=== PATIENT | female | born 1950 | race Caucasian/White ===

== ENCOUNTER 2019-10-06 18:44 | Inpatient (IN) ==
[2019-10-07] MEDS ORDERED: *HR* Metoprolol 5 MG/5 ML VIAL IVP ONE ×2 (03:02→03:13)
[2019-10-07] MEDS ORDERED: Naloxone 0.4 MG/ML INJ IVP PRN (04:02)
[2019-10-07] MEDS ORDERED: Albuterol 2.5 MG/3 ML NEBULIZER IH PRN (04:46)
[2019-10-07] MEDS: Ipratropium/Albuterol Neb 3 ML IH SCH ×4 (04:58→23:54)
[2019-10-07] MEDS ORDERED: Calcium Gluconate 1gm/50mL 1 GM/50 ML BAG IVPB ONE (05:16)
[2019-10-07] MEDS ORDERED: Nicotine 21 MG PATCH.TD24 TD PRN (05:27)
[2019-10-07] MEDS ORDERED: *HR* LORazepam 2 MG/ML VIAL IVP PRN ×3 (05:29)
[2019-10-07 06:09] LABS: Hemoglobin 16.6 g/dL (11.5-15.4); Mean Corpuscular HGB Conc 34.6 g/dL (31.6-35.5); Mean Corpuscular Hemoglobin 30.7 pg (28.0-33.3); Mean Corpuscular Volume 88.9 fL (83.0-100.0); Mean Platelet Volume 9.6 fL (9.4-12.4); Platelet Count 193 K/mcL (140-400); Red Cell Distribution Width 14.8 % (11.5-14.5); White Blood Count 12.1 K/mcL (4.3-11.1)
[2019-10-07] MEDS: Azithromycin 500 MG in D5% in Water 250 ML IVPB SCH (06:24)
[2019-10-07 06:25] LABS: ABG Base Excess 1 mEq/L (-2 to 3); ABG HCO3 28 mEq/L (21-27); ABG Oxygen Saturation 88 % (95-98); ABG PCO2 52 mmHg (35-45); ABG PH 7.33 pH Units (7.32-7.45); ABG PO2 58 mmHg (85-104); ABG TCO2 29 mEq/L (20-26)
[2019-10-07 06:31] LABS: Alanine Aminotransferase 11 Units/L (7-52); Albumin 3.9 g/dL (3.5-5.7); Albumin/Globulin Ratio 1.5 (1.1-2.2); Alkaline Phosphatase 70 Units/L (34-104); Aspartate Amino Transferase 21 Units/L (13-39); BUN/Creatinine Ratio 39 (6-26); Bilirubin,Total 0.8 mg/dL (0.3-1.0); Blood Urea Nitrogen 28 mg/dL (8-23); Calcium 8.7 mg/dL (8.6-10.3); Carbon Dioxide 24 mEq/L (23-29); Chloride 97 mEq/L (98-107); Globulin 2.6 g/dL (2.4-3.5); Glucose 144 mg/dL (70-105); Magnesium 1.8 mg/dL (1.6-2.6); Osmolality,Calculated 280 (280-300); Phosphorous 3.7 mg/dL (2.7-4.5); Potassium 4.7 mEq/L (3.5-5.1); Sodium 131 mEq/L (136-145); Total Protein 6.5 g/dL (6.4-8.9); Troponin I 0.03 ng/mL (< 0.04); eGFR For African Americans > 60 (> 60); eGFR For Non-African Americans > 60 (> 60)
[2019-10-07] MEDS: predniSONE 20 MG TABLET PO SCH (08:30)
[2019-10-07] MEDS: *HR* Promethazine 25 MG/ML VIAL IVP PRN ×2 (10:04→20:58)
[2019-10-07] MEDS ORDERED: Perflutren Lipid Microsphere 1.3 ML in 0.9 % Sodium Chloride 8.7 ML IVP ONE (14:52)
[2019-10-07] MEDS: Thiamine (B-1) 100 MG, Folic Acid 1 MG, MVI, adult with vitamin K 10 ML in 0.9 % Sodi... IVPB SCH (18:13)
[2019-10-08] MEDS: Ipratropium/Albuterol Neb 3 ML IH SCH ×4 (04:29→23:22)
[2019-10-08 05:41] LABS: Basophils % 0.1 %; Hematocrit 48.4 % (35.3-44.9); Hemoglobin 16.9 g/dL (11.5-15.4); Immature Granulocytes % 0.6 % (0-4); Lymphocytes # 0.8 K/mcL (0.6-4.6); Lymphocytes % 5.9 %; Mean Corpuscular HGB Conc 34.9 g/dL (31.6-35.5); Mean Corpuscular Hemoglobin 30.8 pg (28.0-33.3); Mean Corpuscular Volume 88.2 fL (83.0-100.0); Monocytes # 1.8 K/mcL (0.0-1.3); Neutrophils # 11.1 K/mcL (1.6-8.9); Platelet Count 166 K/mcL (140-400); Red Blood Count 5.49 M/mcL (3.82-4.97); Red Cell Distribution Width 14.8 % (11.5-14.5); Segmented Neutrophils % 80.4 %; White Blood Count 13.8 K/mcL (4.3-11.1)
[2019-10-08 06:01] LABS: BUN/Creatinine Ratio 44 (6-26); Blood Urea Nitrogen 24 mg/dL (8-23); Calcium 8.6 mg/dL (8.6-10.3); Carbon Dioxide 25 mEq/L (23-29); Chloride 98 mEq/L (98-107); Glucose 123 mg/dL (70-105); Osmolality,Calculated 279 (280-300); Sodium 132 mEq/L (136-145); eGFR For African Americans > 60 (> 60); eGFR For Non-African Americans > 60 (> 60)
[2019-10-08] MEDS: Azithromycin 500 MG in D5% in Water 250 ML IVPB SCH (06:54)
[2019-10-08] MEDS: predniSONE 20 MG TABLET PO SCH (09:06)
[2019-10-08] MEDS ORDERED: Metoprolol XL (24 HR) Succ 50 MG TAB.ER.24H PO SCH (11:00)
[2019-10-08] MEDS ORDERED: *HR* Heparin 5,000 UNIT/ML VIAL IVP ONE (11:33)
[2019-10-08] MEDS ORDERED: *HR* Heparin 5,000 UNIT/ML VIAL IVP PRN ×2 (11:33)
[2019-10-08] MEDS ORDERED: Heparin 25,000 UNIT/250 ML D5W 25,000 UNIT/250 ML IV.SOLN IVC SCH (11:45)
[2019-10-08 12:56] LABS: Hematocrit 52.2 % (35.3-44.9); Hemoglobin 17.8 g/dL (11.5-15.4); Mean Corpuscular HGB Conc 34.1 g/dL (31.6-35.5); Mean Corpuscular Volume 90.8 fL (83.0-100.0); Mean Platelet Volume 9.9 fL (9.4-12.4); Platelet Count 165 K/mcL (140-400); Red Blood Count 5.75 M/mcL (3.82-4.97); Red Cell Distribution Width 15.3 % (11.5-14.5); White Blood Count 14.7 K/mcL (4.3-11.1)
[2019-10-08] MEDS: Metoprolol XL (24 HR) Succ 50 MG TAB.ER.24H PO SCH (13:02)
[2019-10-08] MEDS: Heparin 25,000 UNIT/250 ML D5W 25,000 UNIT/250 ML IV.SOLN IVC SCH (13:03)
[2019-10-08 13:06] LABS: Heparin anti-factor XA UFH 0.38 IU/mL (0.30-0.70); INR 1.3; Prothrombin Time 14.7 Seconds (9.4-12.1)
[2019-10-08] MEDS ORDERED: 0.9 % Sodium Chloride 1,000 ML IVC SCH (17:30)
[2019-10-08] MEDS: Thiamine (B-1) 100 MG, Folic Acid 1 MG, MVI, adult with vitamin K 10 ML in 0.9 % Sodi... IVPB SCH (17:31)
[2019-10-08] MEDS: Budesonide/Formoterol 80/4.5 1 PUFF INH IH SCH (23:22)
[2019-10-09] MEDS: Ipratropium/Albuterol Neb 3 ML IH SCH ×4 (04:25→22:51)
[2019-10-09 04:29] LABS: Basophils % 0.2 %; Hematocrit 49.4 % (35.3-44.9); Hemoglobin 16.3 g/dL (11.5-15.4); Immature Granulocytes % 0.3 % (0-4); Lymphocytes % 8.8 %; Mean Corpuscular Hemoglobin 30.9 pg (28.0-33.3); Mean Corpuscular Volume 93.6 fL (83.0-100.0); Mean Platelet Volume 9.9 fL (9.4-12.4); Monocytes # 1.5 K/mcL (0.0-1.3); Monocytes % 13.3 %; Neutrophils # 8.6 K/mcL (1.6-8.9); Platelet Count 146 K/mcL (140-400); Red Blood Count 5.28 M/mcL (3.82-4.97); Red Cell Distribution Width 14.9 % (11.5-14.5); Segmented Neutrophils % 77.4 %; White Blood Count 11.1 K/mcL (4.3-11.1)
[2019-10-09 04:47] LABS: BUN/Creatinine Ratio 44 (6-26); Blood Urea Nitrogen 21 mg/dL (8-23); Calcium 8.4 mg/dL (8.6-10.3); Carbon Dioxide 26 mEq/L (23-29); Chloride 101 mEq/L (98-107); Glucose 114 mg/dL (70-105); Osmolality,Calculated 278 (280-300); Potassium 4.2 mEq/L (3.5-5.1); Sodium 132 mEq/L (136-145); eGFR For African Americans > 60 (> 60); eGFR For Non-African Americans > 60 (> 60)
[2019-10-09] MEDS: Metoprolol XL (24 HR) Succ 50 MG TAB.ER.24H PO SCH ×3 (06:02→18:01)
[2019-10-09] MEDS: Azithromycin 500 MG in D5% in Water 250 ML IVPB SCH (06:03)
[2019-10-09] MEDS ORDERED: 0.9 % Sodium Chloride 500 ML ONE (09:19)
[2019-10-09] MEDS ORDERED: 0.9 % Sodium Chloride 500 ML IVC ONE (09:27)
[2019-10-09] MEDS: Budesonide/Formoterol 80/4.5 1 PUFF INH IH SCH ×2 (10:57→22:51)
[2019-10-09] MEDS: predniSONE 20 MG TABLET PO SCH (11:31)
[2019-10-09] MEDS ORDERED: Metoprolol XL (24 HR) Succ 50 MG TAB.ER.24H PO SCH (18:00)
[2019-10-09] MEDS: Heparin 25,000 UNIT/250 ML D5W 25,000 UNIT/250 ML IV.SOLN IVC SCH (18:01)
[2019-10-09] MEDS: Thiamine (B-1) 100 MG, Folic Acid 1 MG, MVI, adult with vitamin K 10 ML in 0.9 % Sodi... IVPB SCH (18:03)
[2019-10-10] MEDS: Ipratropium/Albuterol Neb 3 ML IH SCH (03:49)
[2019-10-10 05:16] LABS: BUN/Creatinine Ratio 31 (6-26); Blood Urea Nitrogen 17 mg/dL (8-23); Calcium 8.4 mg/dL (8.6-10.3); Carbon Dioxide 25 mEq/L (23-29); Chloride 101 mEq/L (98-107); Glucose 87 mg/dL (70-105); Osmolality,Calculated 277 (280-300); Potassium 3.9 mEq/L (3.5-5.1); Sodium 133 mEq/L (136-145); eGFR For African Americans > 60 (> 60); eGFR For Non-African Americans > 60 (> 60)
[2019-10-10] MEDS: Azithromycin 500 MG in D5% in Water 250 ML IVPB SCH (05:54)
[2019-10-10] MEDS ORDERED: 0.9 % Sodium Chloride 500 ML ONE (07:36)
[2019-10-10] MEDS: Metoprolol XL (24 HR) Succ 50 MG TAB.ER.24H PO SCH ×2 (07:39→19:59)
[2019-10-10] MEDS ORDERED: 0.9 % Sodium Chloride 500 ML IVC ONE (07:41)
[2019-10-10] MEDS: Thiamine (B-1) 100 MG TABLET PO SCH (07:42)
[2019-10-10] MEDS: Folic Acid 1 MG TABLET PO SCH (07:42)
[2019-10-10] MEDS: Vitamin B Complex/Vit C/Vit E 1 EACH TABLET PO SCH (07:42)
[2019-10-10] MEDS: predniSONE 20 MG TABLET PO SCH (07:42)
[2019-10-10] MEDS: Levalbuterol Neb 1.25 MG/3 ML IH SCH ×3 (10:46→22:49)
[2019-10-10] MEDS: Budesonide/Formoterol 80/4.5 1 PUFF INH IH SCH ×2 (10:46→22:49)
[2019-10-10] MEDS: *HR* Digoxin 0.5 MG/2 ML AMPUL IVP SCH ×2 (10:54→18:19)
[2019-10-11] MEDS: Heparin 25,000 UNIT/250 ML D5W 25,000 UNIT/250 ML IV.SOLN IVC SCH ×2 (00:25→15:24)
[2019-10-11 01:28] LABS: Basophils % 0.1 %; Eosinophils % 0.1 %; Hematocrit 44.3 % (35.3-44.9); Immature Granulocytes % 0.3 % (0-4); Lymphocytes # 0.7 K/mcL (0.6-4.6); Lymphocytes % 7.6 %; Mean Corpuscular HGB Conc 33.9 g/dL (31.6-35.5); Mean Corpuscular Hemoglobin 30.9 pg (28.0-33.3); Mean Corpuscular Volume 91.3 fL (83.0-100.0); Mean Platelet Volume 10.4 fL (9.4-12.4); Monocytes # 0.9 K/mcL (0.0-1.3); Monocytes % 10.3 %; Neutrophils # 7.4 K/mcL (1.6-8.9); Platelet Count 136 K/mcL (140-400); Red Blood Count 4.85 M/mcL (3.82-4.97); Red Cell Distribution Width 14.9 % (11.5-14.5); Segmented Neutrophils % 81.6 %
[2019-10-11 01:46] LABS: BUN/Creatinine Ratio 29 (6-26); Blood Urea Nitrogen 15 mg/dL (8-23); Calcium 8.2 mg/dL (8.6-10.3); Carbon Dioxide 27 mEq/L (23-29); Chloride 102 mEq/L (98-107); Glucose 118 mg/dL (70-105); Osmolality,Calculated 280 (280-300); Potassium 4.2 mEq/L (3.5-5.1); Sodium 134 mEq/L (136-145); eGFR For African Americans > 60 (> 60); eGFR For Non-African Americans > 60 (> 60)
[2019-10-11] MEDS: *HR* Digoxin 0.5 MG/2 ML AMPUL IVP SCH (01:54)
[2019-10-11] MEDS: Levalbuterol Neb 1.25 MG/3 ML IH SCH ×4 (04:19→21:55)
[2019-10-11] MEDS ORDERED: *HR* Digoxin 0.5 MG/2 ML AMPUL IVP SCH ×2 (08:00)
[2019-10-11] MEDS: predniSONE 20 MG TABLET PO SCH (08:14)
[2019-10-11] MEDS: Thiamine (B-1) 100 MG TABLET PO SCH (08:14)
[2019-10-11] MEDS: Azithromycin 250 MG TABLET PO SCH (08:14)
[2019-10-11] MEDS: Metoprolol XL (24 HR) Succ 50 MG TAB.ER.24H PO SCH ×2 (08:14→20:49)
[2019-10-11] MEDS: Folic Acid 1 MG TABLET PO SCH (08:14)
[2019-10-11] MEDS: Vitamin B Complex/Vit C/Vit E 1 EACH TABLET PO SCH (08:14)
[2019-10-11] MEDS ORDERED: Ondansetron 4 MG/2 ML VIAL IVP PRN (08:58)
[2019-10-11] MEDS: Budesonide/Formoterol 80/4.5 1 PUFF INH IH SCH ×2 (10:39→21:55)
[2019-10-11] MEDS: Spironolactone 25 MG TABLET PO SCH (15:23)
[2019-10-12 02:24] LABS: Basophils % 0.1 %; Eosinophils # 0.1 K/mcL (0.0-0.6); Eosinophils % 0.5 %; Hematocrit 43.9 % (35.3-44.9); Hemoglobin 14.6 g/dL (11.5-15.4); Immature Granulocytes % 0.3 % (0-4); Lymphocytes # 0.7 K/mcL (0.6-4.6); Lymphocytes % 7.1 %; Mean Corpuscular HGB Conc 33.3 g/dL (31.6-35.5); Mean Corpuscular Hemoglobin 30.9 pg (28.0-33.3); Mean Platelet Volume 10.6 fL (9.4-12.4); Monocytes # 0.9 K/mcL (0.0-1.3); Platelet Count 161 K/mcL (140-400); Red Blood Count 4.72 M/mcL (3.82-4.97); Red Cell Distribution Width 14.9 % (11.5-14.5); White Blood Count 9.6 K/mcL (4.3-11.1)
[2019-10-12 02:41] LABS: BUN/Creatinine Ratio 26 (6-26); Blood Urea Nitrogen 12 mg/dL (8-23); Calcium 8.2 mg/dL (8.6-10.3); Carbon Dioxide 28 mEq/L (23-29); Chloride 100 mEq/L (98-107); Glucose 97 mg/dL (70-105); Osmolality,Calculated 276 (280-300); Potassium 3.8 mEq/L (3.5-5.1); Sodium 133 mEq/L (136-145); eGFR For African Americans > 60 (> 60); eGFR For Non-African Americans > 60 (> 60)
[2019-10-12] MEDS: Levalbuterol Neb 1.25 MG/3 ML IH SCH ×3 (03:28→16:31)
[2019-10-12] MEDS: Heparin 25,000 UNIT/250 ML D5W 25,000 UNIT/250 ML IV.SOLN IVC SCH (03:54)
[2019-10-12] MEDS ORDERED: predniSONE 10 MG TABLET PO SCH (09:00)
[2019-10-12] MEDS ORDERED: *HR* Digoxin 0.125 MG TABLET PO SCH (09:00)
[2019-10-12] MEDS ORDERED: ISOVUE-370 200 ML INFUS..BTL ONE (09:26)
[2019-10-12] MEDS ORDERED: Nitroglycerin 1,000 MCG/10 ML VIAL IV ONE (09:26)
[2019-10-12] MEDS ORDERED: 0.9 % Sodium Chloride 2,000 ML ONE (09:26)
[2019-10-12] MEDS ORDERED: *HR* Heparin 10,000 UNIT/10 ML VIAL ONE (09:26)
[2019-10-12] MEDS ORDERED: Heparin 1,000 UNITS/500 mL 500 ML ONE (09:26)
[2019-10-12] MEDS ORDERED: Verapamil 5 MG/2 ML VIAL ONE (09:39)
[2019-10-12] MEDS ORDERED: *HR* Midazolam HCl 2 MG/2 ML VIAL ONE (09:56)
[2019-10-12] MEDS: Budesonide/Formoterol 80/4.5 1 PUFF INH IH SCH (10:23)
[2019-10-12] MEDS: Folic Acid 1 MG TABLET PO SCH (11:48)
[2019-10-12] MEDS: Thiamine (B-1) 100 MG TABLET PO SCH (11:48)
[2019-10-12] MEDS: Metoprolol XL (24 HR) Succ 50 MG TAB.ER.24H PO SCH (11:48)
[2019-10-12] MEDS: Spironolactone 25 MG TABLET PO SCH (11:49)
[2019-10-12] MEDS: Azithromycin 250 MG TABLET PO SCH (11:49)
[2019-10-12] MEDS: Vitamin B Complex/Vit C/Vit E 1 EACH TABLET PO SCH (11:49)
[2019-10-12 14:00] VITALS: BP 142/99
[2019-10-12] MEDS ORDERED: *HR* Rivaroxaban 10 MG TABLET PO SCH (17:00)
[2019-10-13] MEDS ORDERED: Isosorbide MONOnitrate (24 HR) 30 MG TAB.ER.24H PO SCH (09:00)
== END 2019-10-12 17:48 | disposition home or self-care (01) | DRG 286 ==
LOC: 2NENU → SUATTDRO 10-07 05:56
PROVIDERS: ADMIT Internal Medicine; ATTEND Family Medicine

== ENCOUNTER 2020-01-23 00:49 | Inpatient (IN) ==
[2020-01-23] MEDS ORDERED: 0.9 % Sodium Chloride 500 ML IVC ONE (04:19)
[2020-01-23 04:48] LABS: Hematocrit 37.8 % (35.3-44.9); Hemoglobin 12.1 g/dL (11.5-15.4); Mean Corpuscular Hemoglobin 32.2 pg (28.0-33.3); Mean Corpuscular Volume 100.5 fL (83.0-100.0); Mean Platelet Volume 9.6 fL (9.4-12.4); Platelet Count 190 K/mcL (140-400); Red Blood Count 3.76 M/mcL (3.82-4.97); Red Cell Distribution Width 16.2 % (11.5-14.5)
[2020-01-23 04:53] LABS: INR 2.6; Prothrombin Time 29.4 Seconds (9.4-12.1)
[2020-01-23 05:08] LABS: BUN/Creatinine Ratio 15 (6-26); Blood Urea Nitrogen 11 mg/dL (8-23); Calcium 7.6 mg/dL (8.6-10.3); Carbon Dioxide 28 mEq/L (23-29); Chloride 102 mEq/L (98-107); Glucose 82 mg/dL (70-105); Osmolality,Calculated 280 (280-300); Potassium 4.1 mEq/L (3.5-5.1); Sodium 136 mEq/L (136-145); eGFR For African Americans > 60 (> 60); eGFR For Non-African Americans > 60 (> 60)
[2020-01-23 05:11] LABS: Alanine Aminotransferase 10 Units/L (7-52); Albumin 2.9 g/dL (3.5-5.7); Albumin/Globulin Ratio 1.5 (1.1-2.2); Alkaline Phosphatase 86 Units/L (34-104); Aspartate Amino Transferase 17 Units/L (13-39); BUN/Creatinine Ratio 15 (6-26); Bilirubin,Total 0.5 mg/dL (0.3-1.0); Blood Urea Nitrogen 11 mg/dL (8-23); Calcium 7.6 mg/dL (8.6-10.3); Carbon Dioxide 29 mEq/L (23-29); Chloride 102 mEq/L (98-107); Chol/HDL Ratio 2.5 (0-4.9); Cholesterol 99 mg/dL (< 200); Globulin 1.9 g/dL (2.4-3.5); Glucose 83 mg/dL (70-105); HDL Cholesterol 40 mg/dL (40-59); LDL Cholesterol,Calculated 43 mg/dL (0-99); Osmolality,Calculated 283 (280-300); Potassium 4.1 mEq/L (3.5-5.1); Sodium 137 mEq/L (136-145); Total Protein 4.8 g/dL (6.4-8.9); Triglycerides 82 mg/dL (< 150); Troponin I < 0.03 ng/mL (< 0.04); eGFR For African Americans > 60 (> 60); eGFR For Non-African Americans > 60 (> 60)
[2020-01-23 06:53] LABS: Estimated Average Glucose 114 mg/dl
[2020-01-23] MEDS: Budesonide/Formoterol 80/4.5 1 PUFF INH IH SCH ×2 (08:14→20:20)
[2020-01-23] MEDS: Aspirin 81 MG TAB.CHEW PO SCH (08:23)
[2020-01-23 10:28] LABS: ABG Base Excess 4 mEq/L (-2 to 3); ABG HCO3 30 mEq/L (21-27); ABG Oxygen Saturation 93 % (95-98); ABG PCO2 56 mmHg (35-45); ABG PH 7.34 pH Units (7.32-7.45); ABG PO2 71 mmHg (85-104); ABG TCO2 32 mEq/L (20-26)
[2020-01-23 11:37] LABS: Magnesium 1.8 mg/dL (1.6-2.6)
[2020-01-23 14:01] LABS: Magnesium 1.9 mg/dL (1.6-2.6)
[2020-01-24 07:12] LABS: Basophils # 0.1 K/mcL (0.0-0.2); Basophils % 0.5 %; Eosinophils # 0.4 K/mcL (0.0-0.6); Eosinophils % 3.1 %; Hematocrit 42.3 % (35.3-44.9); Immature Granulocytes % 0.3 % (0-4); Lymphocytes # 1.2 K/mcL (0.6-4.6); Mean Corpuscular HGB Conc 32.9 g/dL (31.6-35.5); Mean Corpuscular Hemoglobin 32.9 pg (28.0-33.3); Mean Corpuscular Volume 100.2 fL (83.0-100.0); Mean Platelet Volume 9.6 fL (9.4-12.4); Monocytes # 0.9 K/mcL (0.0-1.3); Monocytes % 7.3 %; Neutrophils # 10.2 K/mcL (1.6-8.9); Platelet Count 219 K/mcL (140-400); Red Blood Count 4.22 M/mcL (3.82-4.97); Red Cell Distribution Width 16.3 % (11.5-14.5); Segmented Neutrophils % 79.8 %
[2020-01-24 07:22] LABS: Hemoglobin 13.9 g/dL (11.5-15.4); White Blood Count 12.8 K/mcL (4.3-11.1)
[2020-01-24] MEDS: Aspirin 81 MG TAB.CHEW PO SCH (07:24)
[2020-01-24 07:31] LABS: BUN/Creatinine Ratio 18 (6-26); Blood Urea Nitrogen 12 mg/dL (8-23); Calcium 8.4 mg/dL (8.6-10.3); Carbon Dioxide 29 mEq/L (23-29); Chloride 102 mEq/L (98-107); Glucose 116 mg/dL (70-105); Osmolality,Calculated 283 (280-300); Potassium 4.6 mEq/L (3.5-5.1); Sodium 136 mEq/L (136-145); eGFR For African Americans > 60 (> 60); eGFR For Non-African Americans > 60 (> 60)
[2020-01-24] MEDS: Budesonide/Formoterol 80/4.5 1 PUFF INH IH SCH ×2 (08:18→20:15)
[2020-01-24] MEDS: *HR* Amiodarone 200 MG TABLET PO SCH (10:50)
[2020-01-24] MEDS ORDERED: Nicotine 2 MG GUM BC PRN (14:39)
[2020-01-24] MEDS ORDERED: Nicotine 14 MG PATCH.TD24 TD PRN (14:39)
[2020-01-24] MEDS: Furosemide 20 MG TABLET PO SCH (17:17)
[2020-01-24] MEDS: *HR* Rivaroxaban 10 MG TABLET PO SCH (17:17)
[2020-01-25 03:11] LABS: Hematocrit 40.7 % (35.3-44.9); Hemoglobin 13.2 g/dL (11.5-15.4); Mean Corpuscular HGB Conc 32.4 g/dL (31.6-35.5); Mean Corpuscular Hemoglobin 32.2 pg (28.0-33.3); Mean Corpuscular Volume 99.3 fL (83.0-100.0); Mean Platelet Volume 9.7 fL (9.4-12.4); Platelet Count 208 K/mcL (140-400); Red Cell Distribution Width 15.9 % (11.5-14.5); White Blood Count 8.9 K/mcL (4.3-11.1)
[2020-01-25] MEDS: Budesonide/Formoterol 80/4.5 1 PUFF INH IH SCH ×2 (07:40→20:21)
[2020-01-25] MEDS: lisinopriL 5 MG TABLET PO SCH (07:54)
[2020-01-25] MEDS: Aspirin 81 MG TAB.CHEW PO SCH (07:54)
[2020-01-25] MEDS: *HR* Amiodarone 200 MG TABLET PO SCH (07:54)
[2020-01-25] MEDS: Furosemide 20 MG TABLET PO SCH (07:55)
[2020-01-25] MEDS: *HR* Rivaroxaban 10 MG TABLET PO SCH (16:11)
[2020-01-26] MEDS: Budesonide/Formoterol 80/4.5 1 PUFF INH IH SCH ×2 (07:47→19:59)
[2020-01-26] MEDS: Furosemide 20 MG TABLET PO SCH (08:51)
[2020-01-26] MEDS: lisinopriL 5 MG TABLET PO SCH (08:51)
[2020-01-26] MEDS: *HR* Amiodarone 200 MG TABLET PO SCH (08:51)
[2020-01-26] MEDS: Aspirin 81 MG TAB.CHEW PO SCH (08:51)
[2020-01-26] MEDS ORDERED: Metoprolol XL (24 HR) Succ 25 MG TAB.ER.24H PO SCH (11:30)
[2020-01-26] MEDS: *HR* Rivaroxaban 10 MG TABLET PO SCH (16:07)
[2020-01-27 07:06] VITALS: BP 112/71
== END 2020-01-27 10:04 | disposition home or self-care (01) | DRG 68 ==
LOC: 3BNU → SUATTDRO 00:49 → 3NENU 14:09 → 3BNU 01-26 14:13
PROVIDERS: ADMIT Internal Medicine; ATTEND Internal Medicine

== ENCOUNTER 2020-06-12 00:32 | Inpatient (IN) ==
[2020-06-12 02:38] LABS: Adenovirus Not Detected (Not Detect); Bordetella Pertussis Not Detected (Not Detect); Chlamydophila pneumoniae Not Detected (Not Detect); Coronavirus 229E Not Detected (Not Detect); Coronavirus HKU1 Not Detected (Not Detect); Coronavirus NL63 Not Detected (Not Detect); Coronavirus OC43 Not Detected (Not Detect); Human Metapneumovirus Not Detected (Not Detect); Human Rhinovirus/Enterovirus Not Detected (Not Detect); Influenza A Subtype 2009 H1 Not Detected (Not Detect); Influenza B Not Detected (Not Detect); Mycoplasma pneumoniae Not Detected (Not Detect); Parainfluenza Virus 1 Not Detected (Not Detect); Parainfluenza Virus 2 Not Detected (Not Detect); Parainfluenza Virus 3 Not Detected (Not Detect); Parainfluenza Virus 4 Not Detected (Not Detect); Respiratory Syncytial Virus Not Detected (Not Detect); SARS-CoV-2 Not Detected (Not Detect)
[2020-06-12] MEDS ORDERED: Naloxone 0.4 MG/ML INJ IVP PRN (03:42)
[2020-06-12] MEDS ORDERED: Acetaminophen 325 MG TABLET PO PRN (03:42)
[2020-06-12] MEDS ORDERED: *HR* LORazepam 2 MG/ML VIAL IVP PRN ×2 (04:42)
[2020-06-12] MEDS: Azithromycin 250 MG TABLET PO SCH (05:47)
[2020-06-12 05:55] LABS: Basophils # 0.1 K/mcL (0.0-0.2); Basophils % 0.8 %; Eosinophils # 0.5 K/mcL (0.0-0.6); Eosinophils % 6.9 %; Hematocrit 34.7 % (35.3-44.9); Hemoglobin 10.2 g/dL (11.5-15.4); Immature Granulocytes % 0.3 % (0-4); Lymphocytes # 1.5 K/mcL (0.6-4.6); Lymphocytes % 21.3 %; Mean Corpuscular HGB Conc 29.4 g/dL (31.6-35.5); Mean Corpuscular Hemoglobin 23.9 pg (28.0-33.3); Mean Corpuscular Volume 81.5 fL (83.0-100.0); Mean Platelet Volume 9.6 fL (9.4-12.4); Monocytes % 14.1 %; Platelet Count 280 K/mcL (140-400); Red Blood Count 4.26 M/mcL (3.82-4.97); Red Cell Distribution Width 15.9 % (11.5-14.5); Segmented Neutrophils % 56.6 %; White Blood Count 7.1 K/mcL (4.3-11.1)
[2020-06-12] MEDS: Ipratropium/Albuterol Neb 3 ML IH SCH ×4 (06:07→22:25)
[2020-06-12 06:25] LABS: BUN/Creatinine Ratio 25 (6-26); Blood Urea Nitrogen 14 mg/dL (8-23); Calcium 8.2 mg/dL (8.6-10.3); Carbon Dioxide 32 mEq/L (23-29); Chloride 99 mEq/L (98-107); Glucose 89 mg/dL (70-105); Magnesium 1.7 mg/dL (1.6-2.6); Osmolality,Calculated 284 (280-300); Phosphorous 4.7 mg/dL (2.7-4.5); Potassium 4.3 mEq/L (3.5-5.1); Sodium 137 mEq/L (136-145); eGFR For African Americans > 60 (> 60); eGFR For Non-African Americans > 60 (> 60)
[2020-06-12] MEDS: predniSONE 20 MG TABLET PO SCH (07:44)
[2020-06-12] MEDS: Vitamin B Complex/Vit C/Vit E 1 EACH TABLET PO SCH (07:44)
[2020-06-12] MEDS: Thiamine (B-1) 100 MG TABLET PO SCH (07:44)
[2020-06-12] MEDS: Folic Acid 1 MG TABLET PO SCH (07:44)
[2020-06-12] MEDS: Ondansetron ODT 4 MG TAB.RAPDIS SL PRN (07:52)
[2020-06-12] MEDS ORDERED: Piperacillin/Tazobactam 3.375 GM in 0.9 % Sodium Chloride Mini Bag 100 ML IVPB SCH (08:00)
[2020-06-12] MEDS ORDERED: SODIUM CHLORIDE/NAHCO3/KCL/PEG 4,000 ML SOLN.RECON PO ONE (15:41)
[2020-06-12] MEDS: Budesonide/Formoterol 80/4.5 1 PUFF INH IH SCH (22:25)
[2020-06-13] MEDS: Ondansetron ODT 4 MG TAB.RAPDIS SL PRN (02:37)
[2020-06-13] MEDS ORDERED: *HR* Promethazine 25 MG/ML VIAL IVP PRN (03:21)
[2020-06-13] MEDS: *HR* LORazepam 2 MG/ML VIAL IVP PRN ×2 (03:39→16:17)
[2020-06-13] MEDS: Ipratropium/Albuterol Neb 3 ML IH SCH ×2 (04:12→10:52)
[2020-06-13 05:00] LABS: Basophils % 0.4 %; Eosinophils % 0.2 %; Hematocrit 33.3 % (35.3-44.9); Hemoglobin 9.7 g/dL (11.5-15.4); Immature Granulocytes % 0.5 % (0-4); Lymphocytes # 1.3 K/mcL (0.6-4.6); Mean Corpuscular HGB Conc 29.1 g/dL (31.6-35.5); Mean Corpuscular Hemoglobin 23.7 pg (28.0-33.3); Mean Corpuscular Volume 81.4 fL (83.0-100.0); Mean Platelet Volume 9.7 fL (9.4-12.4); Monocytes # 1.4 K/mcL (0.0-1.3); Neutrophils # 7.2 K/mcL (1.6-8.9); Platelet Count 267 K/mcL (140-400); Red Blood Count 4.09 M/mcL (3.82-4.97); Red Cell Distribution Width 15.9 % (11.5-14.5); Segmented Neutrophils % 71.9 %
[2020-06-13 05:12] LABS: % Iron Saturation 5 % (15-50); BUN/Creatinine Ratio 25 (6-26); Blood Urea Nitrogen 13 mg/dL (8-23); Calcium 8.9 mg/dL (8.6-10.3); Carbon Dioxide 31 mEq/L (23-29); Chloride 98 mEq/L (98-107); Glucose 140 mg/dL (70-105); Iron 22 mcg/dL (50-170); Osmolality,Calculated 286 (280-300); Potassium 3.9 mEq/L (3.5-5.1); Sodium 137 mEq/L (136-145); Transferrin 335 mg/dL (203-362); eGFR For African Americans > 60 (> 60); eGFR For Non-African Americans > 60 (> 60)
[2020-06-13 05:30] LABS: Ferritin 10 ng/mL (10-120)
[2020-06-13 05:39] LABS: Folate > 22.3 ng/mL (3.0-16.0); Vitamin B12 356 pg/mL (250-1100)
[2020-06-13] MEDS: Vitamin B Complex/Vit C/Vit E 1 EACH TABLET PO SCH (09:57)
[2020-06-13] MEDS: predniSONE 20 MG TABLET PO SCH (09:57)
[2020-06-13] MEDS: Folic Acid 1 MG TABLET PO SCH (09:57)
[2020-06-13] MEDS: Thiamine (B-1) 100 MG TABLET PO SCH (09:57)
[2020-06-13] MEDS: Azithromycin 250 MG TABLET PO SCH (09:57)
[2020-06-13] MEDS: Budesonide/Formoterol 80/4.5 1 PUFF INH IH SCH ×2 (10:52→22:08)
[2020-06-13] MEDS: Furosemide 40 MG/4 ML VIAL IVP SCH ×2 (14:48→20:18)
[2020-06-13] MEDS: Levalbuterol Neb 1.25 MG/3 ML IH SCH ×2 (14:50→22:08)
[2020-06-13] MEDS ORDERED: Perflutren Lipid Microsphere 1.3 ML in 0.9 % Sodium Chloride 8.7 ML IVP PRN (16:44)
[2020-06-13 17:12] LABS: BUN/Creatinine Ratio 20 (6-26); Blood Urea Nitrogen 10 mg/dL (8-23); Calcium 9.2 mg/dL (8.6-10.3); Carbon Dioxide 33 mEq/L (23-29); Chloride 98 mEq/L (98-107); Glucose 136 mg/dL (70-105); Osmolality,Calculated 287 (280-300); Potassium 4.4 mEq/L (3.5-5.1); Sodium 138 mEq/L (136-145); Troponin I 0.14 ng/mL (< 0.04); eGFR For African Americans > 60 (> 60); eGFR For Non-African Americans > 60 (> 60)
[2020-06-14] MEDS: Levalbuterol Neb 1.25 MG/3 ML IH SCH ×4 (03:29→22:05)
[2020-06-14 05:50] LABS: Basophils % 0.2 %; Hematocrit 38.1 % (35.3-44.9); Immature Granulocytes % 0.4 % (0-4); Lymphocytes # 1.2 K/mcL (0.6-4.6); Lymphocytes % 6.8 %; Mean Corpuscular HGB Conc 29.7 g/dL (31.6-35.5); Mean Corpuscular Hemoglobin 23.7 pg (28.0-33.3); Mean Platelet Volume 9.8 fL (9.4-12.4); Monocytes # 2.1 K/mcL (0.0-1.3); Monocytes % 11.8 %; Platelet Count 306 K/mcL (140-400); Red Blood Count 4.76 M/mcL (3.82-4.97); Segmented Neutrophils % 80.8 %
[2020-06-14 05:51] LABS: Hemoglobin 11.3 g/dL (11.5-15.4); Neutrophils # 14.5 K/mcL (1.6-8.9)
[2020-06-14 06:31] LABS: Calcium 9.5 mg/dL (8.6-10.3); Carbon Dioxide 34 mEq/L (23-29); Chloride 96 mEq/L (98-107); Glucose 110 mg/dL (70-105); Magnesium 1.7 mg/dL (1.6-2.6); Potassium 4.2 mEq/L (3.5-5.1); Sodium 141 mEq/L (136-145); Troponin I 0.54 ng/mL (< 0.04); eGFR For African Americans > 60 (> 60); eGFR For Non-African Americans > 60 (> 60)
[2020-06-14] MEDS ORDERED: *HR* Heparin 5,000 UNIT/ML VIAL IVP ONE (06:36)
[2020-06-14] MEDS ORDERED: *HR* Heparin 5,000 UNIT/ML VIAL IVP PRN ×2 (06:36)
[2020-06-14] MEDS ORDERED: Heparin 25,000UNIT/250ML 1/2NS 25,000 UNIT/250 ML IV.SOLN IVC SCH ×2 (06:45→06:48)
[2020-06-14 07:04] LABS: Hematocrit 36.1 % (35.3-44.9); Hemoglobin 10.9 g/dL (11.5-15.4); Mean Corpuscular HGB Conc 30.2 g/dL (31.6-35.5); Mean Corpuscular Hemoglobin 24.1 pg (28.0-33.3); Mean Corpuscular Volume 79.9 fL (83.0-100.0); Mean Platelet Volume 9.3 fL (9.4-12.4); Platelet Count 286 K/mcL (140-400); Red Blood Count 4.52 M/mcL (3.82-4.97); White Blood Count 18.9 K/mcL (4.3-11.1)
[2020-06-14 07:08] LABS: Heparin anti-factor XA UFH 0.07 IU/mL (0.30-0.70)
[2020-06-14 07:09] LABS: INR 1.1; Prothrombin Time 12.7 Seconds (9.4-12.1)
[2020-06-14] MEDS: predniSONE 20 MG TABLET PO SCH (08:29)
[2020-06-14] MEDS: Vitamin B Complex/Vit C/Vit E 1 EACH TABLET PO SCH (08:29)
[2020-06-14] MEDS: Thiamine (B-1) 100 MG TABLET PO SCH (08:29)
[2020-06-14] MEDS: Folic Acid 1 MG TABLET PO SCH (08:29)
[2020-06-14] MEDS: Azithromycin 250 MG TABLET PO SCH (08:29)
[2020-06-14] MEDS: Furosemide 40 MG/4 ML VIAL IVP SCH ×2 (08:32→20:14)
[2020-06-14] MEDS: Budesonide/Formoterol 80/4.5 1 PUFF INH IH SCH ×2 (10:12→22:05)
[2020-06-14 10:15] LABS: BUN/Creatinine Ratio 25 (6-26); Blood Urea Nitrogen 13 mg/dL (8-23); Osmolality,Calculated 293 (280-300)
[2020-06-14] MEDS: lisinopriL 5 MG TABLET PO SCH (11:41)
[2020-06-14] MEDS: Metoprolol XL (24 HR) Succ 50 MG TAB.ER.24H PO SCH (11:42)
[2020-06-14] MEDS: Isosorbide MONOnitrate (24 HR) 30 MG TAB.ER.24H PO SCH (11:42)
[2020-06-14 13:11] LABS: Troponin I 0.47 ng/mL (< 0.04)
[2020-06-14 13:39] LABS: Thyroid Stimulating Hormone 0.24 mcIU/mL (0.340-5.600)
[2020-06-14] MEDS: *HR* Amiodarone 200 MG TABLET PO SCH (16:50)
[2020-06-14] MEDS: Piperacillin/Tazobactam 3.375 GM in 0.9 % Sodium Chloride Mini Bag 100 ML IVPB SCH ×2 (16:50→23:50)
[2020-06-15] MEDS: Levalbuterol Neb 1.25 MG/3 ML IH SCH ×4 (04:39→21:49)
[2020-06-15 04:48] LABS: Basophils % 0.3 %; Eosinophils % 0.1 %; Hematocrit 33.2 % (35.3-44.9); Hemoglobin 10.1 g/dL (11.5-15.4); Immature Granulocytes % 0.4 % (0-4); Lymphocytes # 1.5 K/mcL (0.6-4.6); Lymphocytes % 11.4 %; Mean Corpuscular HGB Conc 30.4 g/dL (31.6-35.5); Mean Corpuscular Hemoglobin 23.7 pg (28.0-33.3); Mean Corpuscular Volume 77.9 fL (83.0-100.0); Mean Platelet Volume 9.6 fL (9.4-12.4); Monocytes # 1.9 K/mcL (0.0-1.3); Monocytes % 13.9 %; Neutrophils # 9.9 K/mcL (1.6-8.9); Platelet Count 244 K/mcL (140-400); Red Blood Count 4.26 M/mcL (3.82-4.97); Segmented Neutrophils % 73.9 %; White Blood Count 13.3 K/mcL (4.3-11.1)
[2020-06-15 05:06] LABS: BUN/Creatinine Ratio 32 (6-26); Blood Urea Nitrogen 20 mg/dL (8-23); Calcium 8.8 mg/dL (8.6-10.3); Carbon Dioxide 34 mEq/L (23-29); Chloride 91 mEq/L (98-107); Glucose 104 mg/dL (70-105); Magnesium 1.8 mg/dL (1.6-2.6); Osmolality,Calculated 283 (280-300); Phosphorous 4.6 mg/dL (2.7-4.5); Potassium 3.5 mEq/L (3.5-5.1); Sodium 135 mEq/L (136-145); eGFR For African Americans > 60 (> 60); eGFR For Non-African Americans > 60 (> 60)
[2020-06-15] MEDS: predniSONE 20 MG TABLET PO SCH (07:59)
[2020-06-15] MEDS: Thiamine (B-1) 100 MG TABLET PO SCH (07:59)
[2020-06-15] MEDS: Metoprolol XL (24 HR) Succ 50 MG TAB.ER.24H PO SCH (07:59)
[2020-06-15] MEDS: Folic Acid 1 MG TABLET PO SCH (07:59)
[2020-06-15] MEDS: Furosemide 40 MG/4 ML VIAL IVP SCH (07:59)
[2020-06-15] MEDS: *HR* Amiodarone 200 MG TABLET PO SCH (07:59)
[2020-06-15] MEDS: Vitamin B Complex/Vit C/Vit E 1 EACH TABLET PO SCH (07:59)
[2020-06-15] MEDS: Azithromycin 250 MG TABLET PO SCH (07:59)
[2020-06-15] MEDS: Isosorbide MONOnitrate (24 HR) 30 MG TAB.ER.24H PO SCH (08:00)
[2020-06-15] MEDS: Piperacillin/Tazobactam 3.375 GM in 0.9 % Sodium Chloride Mini Bag 100 ML IVPB SCH ×3 (08:00→23:48)
[2020-06-15] MEDS: lisinopriL 5 MG TABLET PO SCH (09:38)
[2020-06-15] MEDS: Budesonide/Formoterol 80/4.5 1 PUFF INH IH SCH ×2 (10:52→21:50)
[2020-06-15] MEDS ORDERED: *HR* LORazepam 1 MG TABLET PO ONE (11:48)
[2020-06-15] MEDS: Furosemide 40 MG TABLET PO SCH (17:25)
[2020-06-15] MEDS ORDERED: *HR* Metoprolol 5 MG/5 ML VIAL IVP SCH (20:00)
[2020-06-15] MEDS ORDERED: *HR* Metoprolol 5 MG/5 ML VIAL IVP PRN (21:40)
[2020-06-16] MEDS: Levalbuterol Neb 1.25 MG/3 ML IH SCH ×4 (03:53→22:51)
[2020-06-16 06:25] LABS: Basophils % 0.3 %; Eosinophils % 0.2 %; Hematocrit 36.4 % (35.3-44.9); Hemoglobin 11.3 g/dL (11.5-15.4); Immature Granulocytes % 0.3 % (0-4); Lymphocytes % 18.3 %; Mean Corpuscular Hemoglobin 23.8 pg (28.0-33.3); Mean Corpuscular Volume 76.8 fL (83.0-100.0); Mean Platelet Volume 10.1 fL (9.4-12.4); Monocytes # 1.5 K/mcL (0.0-1.3); Monocytes % 14.2 %; Neutrophils # 7.2 K/mcL (1.6-8.9); Platelet Count 289 K/mcL (140-400); Red Blood Count 4.74 M/mcL (3.82-4.97); Red Cell Distribution Width 15.9 % (11.5-14.5); Segmented Neutrophils % 66.7 %; White Blood Count 10.8 K/mcL (4.3-11.1)
[2020-06-16 06:44] LABS: BUN/Creatinine Ratio 45 (6-26); Blood Urea Nitrogen 33 mg/dL (8-23); Calcium 8.5 mg/dL (8.6-10.3); Carbon Dioxide 32 mEq/L (23-29); Chloride 89 mEq/L (98-107); Glucose 89 mg/dL (70-105); Osmolality,Calculated 283 (280-300); Potassium 3.4 mEq/L (3.5-5.1); Sodium 133 mEq/L (136-145); eGFR For African Americans > 60 (> 60); eGFR For Non-African Americans > 60 (> 60)
[2020-06-16] MEDS ORDERED: Potassium Chloride Elixir 20 MEQ/15 ML UDC PO ONE (07:27)
[2020-06-16] MEDS ORDERED: Magnesium Sulfate 1 GM/102 ML PIGGYBACK IVPB ONE (07:28)
[2020-06-16] MEDS: Furosemide 40 MG TABLET PO SCH ×2 (08:51→18:19)
[2020-06-16] MEDS: Piperacillin/Tazobactam 3.375 GM in 0.9 % Sodium Chloride Mini Bag 100 ML IVPB SCH (09:16)
[2020-06-16] MEDS: predniSONE 20 MG TABLET PO SCH (09:16)
[2020-06-16] MEDS: Metoprolol XL (24 HR) Succ 50 MG TAB.ER.24H PO SCH (09:17)
[2020-06-16] MEDS: Azithromycin 250 MG TABLET PO SCH (09:17)
[2020-06-16] MEDS: *HR* Amiodarone 200 MG TABLET PO SCH (09:17)
[2020-06-16] MEDS: Ondansetron ODT 4 MG TAB.RAPDIS SL PRN (09:25)
[2020-06-16] MEDS: Isosorbide MONOnitrate (24 HR) 30 MG TAB.ER.24H PO SCH (09:26)
[2020-06-16] MEDS: lisinopriL 5 MG TABLET PO SCH (09:27)
[2020-06-16] MEDS: Budesonide/Formoterol 80/4.5 1 PUFF INH IH SCH ×2 (10:25→22:51)
[2020-06-16] MEDS ORDERED: Amiodarone Premix 150 MG/100 ML BAG IVPB ONE (10:55)
[2020-06-16] MEDS ORDERED: Amiodarone Premix 360 MG/200 ML BAG IVC ONE (10:55)
[2020-06-16] MEDS: Vitamin B Complex/Vit C/Vit E 1 EACH TABLET PO SCH (12:14)
[2020-06-16] MEDS: Thiamine (B-1) 100 MG TABLET PO SCH (12:14)
[2020-06-16] MEDS: Folic Acid 1 MG TABLET PO SCH (12:15)
[2020-06-16] MEDS: Amiodarone Premix 360 MG/200 ML BAG IVC SCH (18:37)
[2020-06-17 00:58] LABS: Eosinophils % 0.1 %; Hematocrit 35.1 % (35.3-44.9); Immature Granulocytes % 0.3 % (0-4); Lymphocytes # 1.2 K/mcL (0.6-4.6); Lymphocytes % 12.4 %; Mean Corpuscular HGB Conc 31.3 g/dL (31.6-35.5); Mean Corpuscular Hemoglobin 24.1 pg (28.0-33.3); Mean Corpuscular Volume 76.8 fL (83.0-100.0); Mean Platelet Volume 10.1 fL (9.4-12.4); Monocytes # 1.2 K/mcL (0.0-1.3); Monocytes % 13.3 %; Neutrophils # 6.9 K/mcL (1.6-8.9); Platelet Count 231 K/mcL (140-400); Red Blood Count 4.57 M/mcL (3.82-4.97); Segmented Neutrophils % 73.9 %; White Blood Count 9.3 K/mcL (4.3-11.1)
[2020-06-17 01:16] LABS: BUN/Creatinine Ratio 48 (6-26); Blood Urea Nitrogen 35 mg/dL (8-23); Calcium 8.3 mg/dL (8.6-10.3); Carbon Dioxide 31 mEq/L (23-29); Chloride 90 mEq/L (98-107); Glucose 117 mg/dL (70-105); Osmolality,Calculated 281 (280-300); Potassium 3.8 mEq/L (3.5-5.1); Sodium 131 mEq/L (136-145); eGFR For African Americans > 60 (> 60); eGFR For Non-African Americans > 60 (> 60)
[2020-06-17] MEDS: Levalbuterol Neb 1.25 MG/3 ML IH SCH ×4 (03:23→22:12)
[2020-06-17] MEDS: Amiodarone Premix 360 MG/200 ML BAG IVC SCH (05:59)
[2020-06-17] MEDS: Isosorbide MONOnitrate (24 HR) 30 MG TAB.ER.24H PO SCH (06:04)
[2020-06-17] MEDS: lisinopriL 5 MG TABLET PO SCH (06:04)
[2020-06-17] MEDS: Metoprolol XL (24 HR) Succ 50 MG TAB.ER.24H PO SCH (06:04)
[2020-06-17] MEDS: Furosemide 40 MG TABLET PO SCH ×2 (06:04→16:48)
[2020-06-17] MEDS: predniSONE 20 MG TABLET PO SCH (07:42)
[2020-06-17] MEDS: *HR* Amiodarone 200 MG TABLET PO SCH ×2 (07:42→20:46)
[2020-06-17] MEDS: Thiamine (B-1) 100 MG TABLET PO SCH (07:42)
[2020-06-17] MEDS: Azithromycin 250 MG TABLET PO SCH (07:42)
[2020-06-17] MEDS: Vitamin B Complex/Vit C/Vit E 1 EACH TABLET PO SCH (07:42)
[2020-06-17] MEDS: Folic Acid 1 MG TABLET PO SCH (07:42)
[2020-06-17] MEDS: Budesonide/Formoterol 80/4.5 1 PUFF INH IH SCH ×2 (10:45→22:12)
[2020-06-17] MEDS: *HR* Rivaroxaban 10 MG TABLET PO SCH (10:53)
[2020-06-18] MEDS: Levalbuterol Neb 1.25 MG/3 ML IH SCH ×4 (03:16→21:57)
[2020-06-18 04:28] LABS: Basophils % 0.1 %; Eosinophils % 0.3 %; Hemoglobin 10.6 g/dL (11.5-15.4); Immature Granulocytes % 0.2 % (0-4); Lymphocytes # 1.8 K/mcL (0.6-4.6); Lymphocytes % 16.8 %; Mean Corpuscular HGB Conc 31.2 g/dL (31.6-35.5); Mean Corpuscular Hemoglobin 24.5 pg (28.0-33.3); Mean Corpuscular Volume 78.5 fL (83.0-100.0); Mean Platelet Volume 9.6 fL (9.4-12.4); Monocytes # 1.3 K/mcL (0.0-1.3); Monocytes % 11.6 %; Neutrophils # 7.7 K/mcL (1.6-8.9); Platelet Count 269 K/mcL (140-400); Red Blood Count 4.33 M/mcL (3.82-4.97); Red Cell Distribution Width 15.9 % (11.5-14.5); White Blood Count 10.8 K/mcL (4.3-11.1)
[2020-06-18 04:40] LABS: BUN/Creatinine Ratio 36 (6-26); Blood Urea Nitrogen 25 mg/dL (8-23); Calcium 8.8 mg/dL (8.6-10.3); Carbon Dioxide 37 mEq/L (23-29); Chloride 90 mEq/L (98-107); Glucose 97 mg/dL (70-105); Osmolality,Calculated 280 (280-300); Potassium 3.1 mEq/L (3.5-5.1); Sodium 133 mEq/L (136-145); eGFR For African Americans > 60 (> 60); eGFR For Non-African Americans > 60 (> 60)
[2020-06-18] MEDS ORDERED: Potassium Chloride 40 MEQ, Lidocaine 1% 2 ML in 0.9 % Sodium Chloride 500 ML IVPB ONE (07:28)
[2020-06-18] MEDS ORDERED: Potassium Chloride Elixir 20 MEQ/15 ML UDC PO ONE ×2 (07:28→09:00)
[2020-06-18] MEDS: Furosemide 40 MG TABLET PO SCH ×2 (08:59→18:34)
[2020-06-18] MEDS ORDERED: *HR* Rivaroxaban 10 MG TABLET PO SCH (09:00)
[2020-06-18] MEDS: Isosorbide MONOnitrate (24 HR) 30 MG TAB.ER.24H PO SCH (09:00)
[2020-06-18] MEDS: Folic Acid 1 MG TABLET PO SCH (09:00)
[2020-06-18] MEDS: *HR* Amiodarone 200 MG TABLET PO SCH ×2 (09:00→20:04)
[2020-06-18] MEDS: Thiamine (B-1) 100 MG TABLET PO SCH (09:01)
[2020-06-18] MEDS: Vitamin B Complex/Vit C/Vit E 1 EACH TABLET PO SCH (09:01)
[2020-06-18] MEDS: Metoprolol XL (24 HR) Succ 50 MG TAB.ER.24H PO SCH (09:01)
[2020-06-18] MEDS: lisinopriL 5 MG TABLET PO SCH (09:02)
[2020-06-18] MEDS: *HR* Rivaroxaban 10 MG TABLET PO SCH (09:02)
[2020-06-18] MEDS: Ondansetron ODT 4 MG TAB.RAPDIS SL PRN (09:31)
[2020-06-18] MEDS: Budesonide/Formoterol 80/4.5 1 PUFF INH IH SCH ×2 (11:10→21:57)
[2020-06-19] MEDS: Levalbuterol Neb 1.25 MG/3 ML IH SCH ×2 (03:14→07:42)
[2020-06-19 07:23] VITALS: BP 145/106
[2020-06-19] MEDS: Budesonide/Formoterol 80/4.5 1 PUFF INH IH SCH (07:42)
[2020-06-19] MEDS: Thiamine (B-1) 100 MG TABLET PO SCH (08:45)
[2020-06-19] MEDS: Folic Acid 1 MG TABLET PO SCH (08:45)
[2020-06-19] MEDS: lisinopriL 5 MG TABLET PO SCH (08:45)
[2020-06-19] MEDS: *HR* Rivaroxaban 10 MG TABLET PO SCH (08:45)
[2020-06-19] MEDS: Vitamin B Complex/Vit C/Vit E 1 EACH TABLET PO SCH (08:45)
[2020-06-19] MEDS: Isosorbide MONOnitrate (24 HR) 30 MG TAB.ER.24H PO SCH (08:46)
[2020-06-19] MEDS: Furosemide 40 MG TABLET PO SCH (08:46)
[2020-06-19] MEDS: *HR* Amiodarone 200 MG TABLET PO SCH (08:46)
[2020-06-19 08:52] LABS: BUN/Creatinine Ratio 24 (6-26); Blood Urea Nitrogen 14 mg/dL (8-23); Calcium 8.8 mg/dL (8.6-10.3); Carbon Dioxide 35 mEq/L (23-29); Chloride 92 mEq/L (98-107); Glucose 121 mg/dL (70-105); Osmolality,Calculated 276 (280-300); Potassium 3.6 mEq/L (3.5-5.1); Sodium 132 mEq/L (136-145); eGFR For African Americans > 60 (> 60); eGFR For Non-African Americans > 60 (> 60)
[2020-06-19] MEDS ORDERED: METOPROLOL PO SCH (09:00)
[2020-06-19] MEDS ORDERED: [UNRECOGNIZED DRUG - OTHER] PO SCH (09:00)
[2020-06-19] MEDS ORDERED: Metoprolol XL (24 HR) Succ 50 MG TAB.ER.24H PO SCH (09:00)
== END 2020-06-19 13:20 | disposition home or self-care (01) | DRG 896 ==
LOC: 3ANU → SUATTDRO 01:23 → 2NNU 06-13 16:42
PROVIDERS: ADMIT Family Medicine; ATTEND Family Medicine